=== PATIENT | male | born 2000 | race Caucasian/White ===

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

== ENCOUNTER 2024-03-20 19:32 | Emergency (ER) | payer BC, OTHER ==
[2024-03-20 19:49] VITALS: TEMP 98.9
--- NOTE | 2024-03-20 20:10 | ERPHSYRPT ---
- History of Present Illness Time Seen by Provider: 03/20/24 20:08 Source: patient Exam Limitations: no limitations Physician History: Patient is [id number] maleNo significant past medical history presents to our emergency department for evaluation of right upper quadrant pain. Patient states the pain has been intermittent for approximately 1 week. Patient reports she just cannot get comfortable. Pain tends to radiate to his back. Mother concerned for possible gallbladder disease. No trauma no fever patient is mildly nauseous. No chest pain or shortness of breath. Symptoms are constantWith intermittent bouts of worsening. Patient denies a history of the same. He voices no other complaints or concerns at this time. Portions of this note were created with voice recognition technology. There may be grammatical, spelling, punctuation or sound alike errors Timing/Duration: week(s) (1 week) Severity: moderate Modifying Factors: Improves With: nothing Associated Symptoms: denies symptoms Allergies/Adverse Reactions: No Known Drug Allergies Allergy (Verified 06/16/19 13:56) Hx Tetanus, Diphtheria Vaccination/Date Given: Yes Hx Influenza Vaccination/Date Given: No Hx Pneumococcal Vaccination/Date Given: No - Review of Systems Constitutional: No Symptoms, No Fever, No Chills Eyes: No Symptoms Ears, Nose, & Throat: No Symptoms Respiratory: No Symptoms, No Cough, No Dyspnea Cardiac: No Symptoms, No Chest Pain, No Edema, No Syncope Abdominal/Gastrointestinal: No Symptoms, No Abdominal Pain, No Nausea, No Vomiting, No Diarrhea Genitourinary Symptoms: No Symptoms, No Dysuria Musculoskeletal: No Symptoms, No Back Pain, No Neck Pain Skin: No Symptoms, No Rash Neurological: No Symptoms, No Dizziness, No Focal Weakness, No Sensory Changes Psychological: No Symptoms Endocrine: No Symptoms Hematologic/Lymphatic: No Symptoms Immunological/Allergic: No Symptoms All Other Systems: Reviewed and Negative - Past Medical History Pertinent Past Medical History: Yes Neurological History: No Pertinent History Cardiac History: No Pertinent History Respiratory History: No Pertinent History Endocrine Medical History: No Pertinent History Musculoskeletal History: No Pertinent History Psycho-Social History: Anxiety, Depression Other Medical History: seasonal allergies - Past Surgical History Past Surgical History: No - Social History Smoking Status: Never smoker Exposure to second hand smoke: No Drug Use: none Patient Lives Alone: No - Nursing Vital Signs Nursing Vital Signs: Initial Vital Signs Temperature 98.9 F 07/10/24 19:43 Pulse Rate 112 H 03/20/24 19:43 Respiratory Rate 18 03/20/24 19:43 Blood Pressure 147/95 03/20/24 19:43 O2 Sat by Pulse Oximetry 99 03/20/24 19:43 Pain Scale Pain Intensity 3 - Physical Exam General Appearance: no apparent distress, alert Eye Exam: PERRL/EOMI, eyes nml inspection Ears, Nose, Throat Exam: normal ENT inspection, TMs normal, pharynx normal, moist mucous membranes Neck Exam: normal inspection, non-tender, supple, full range of motion Respiratory Exam: normal breath sounds, lungs clear, airway intact, No respiratory distress Cardiovascular Exam: regular rate/rhythm, normal heart sounds, normal peripheral pulses Gastrointestinal/Abdomen Exam: soft, normal bowel sounds, No tenderness, No mass Back Exam: normal inspection, normal range of motion, No CVA tenderness, No vertebral tenderness Extremity Exam: normal inspection, normal range of motion, pelvis stable Neurologic Exam: alert, oriented x 3, cooperative, normal mood/affect, nml cerebellar function, nml station & gait, sensation nml, No motor deficits Skin Exam: normal color, warm, dry, No rash Lymphatic Exam: No adenopathy SpO2 Interpretation: normal SpO2: 99 O2 Delivery: Room Air - Course Nursing assessment & vital signs reviewed: Yes EKG Interpreted by Me: RATE ([id number]), Sinus Rhythm, NORMAL AXIS, NORMAL INTERVALS Ordered Tests: Active Orders 24 hr Category Date Time Status EKG-ER Only STAT Care 03/20/24 20:04 Active IV Insertion STAT Care 03/20/24 20:04 Active ABDOMEN AND PELVIS W/0 CONTRAS [CT] Stat Exams 03/20/24 21:37 Taken CBC W DIFF Stat Lab 03/20/24 20:10 Completed CMP Stat Lab 03/20/24 20:10 Completed D-DIMER QUANTITATIVE Stat Lab 03/20/24 20:10 Completed LIPASE Stat Lab 03/20/24 20:10 Completed TROPONIN Q4H Lab 03/20/24 20:10 Completed TROPONIN Q4H Lab 03/21/24 00:15 Ordered TROPONIN Q4H Lab 03/21/24 04:15 Ordered UA W/RFX UR CULTURE Stat Lab 03/20/24 20:00 Completed Urine Triage Profile Stat Lab 03/20/24 20:00 Completed Medication Summary Generic Name Dose Route Start Last Admin Trade Name Freq PRN Reason Stop Dose Admin Dextrose/Sodium Chloride 1,000 mls @ 200 mls/hr 03/20/24 21:30 03/20/24 21:40 Dextrose 5% -0.45 Nacl 1000 Ml IV 04/19/24 21:29 200 mls/hr .Q5H DAISY Administration Discontinued Medications Generic Name Dose Route Start Last Admin Trade Name Freq PRN Reason Stop Dose Admin Sodium Chloride 1,000 mls @ 999 mls/hr 03/20/24 20:04 03/20/24 20:21 Sodium Chloride 0.9% 1000 Ml IV 03/20/24 21:04 999 mls/hr .Q1H1M STA Administration Sodium Chloride Confirm 03/20/24 20:17 Sodium Chloride 0.9% 1000 Ml Administered 03/20/24 20:18 Dose 1,000 mls @ ud .ROUTE .STK-MED ONE Ketorolac Tromethamine 30 mg 03/20/24 20:04 03/20/24 20:26 Ketorolac Tromethamine 30 Mg/Ml Inj IV 03/20/24 20:05 30 mg STAT ONE Administration Ketorolac Tromethamine Confirm 03/20/24 20:17 Ketorolac Tromethamine 30 Mg/Ml Inj Administered 03/20/24 20:18 Dose 30 mg .ROUTE .STK-MED ONE Ondansetron HCl 4 mg 03/20/24 20:04 03/20/24 20:23 Ondansetron Hcl 4 Mg/2 Ml Vial IV 03/20/24 20:05 4 mg STAT ONE Administration Ondansetron HCl Confirm 03/20/24 20:17 Ondansetron Hcl 4 Mg/2 Ml Vial Administered 03/20/24 20:18 Dose 4 mg .ROUTE .STK-MED ONE Potassium Chloride 40 meq 03/20/24 21:28 03/20/24 21:40 Potassium Chloride Tab 10 Meq Tab PO 03/20/24 21:29 40 meq STAT ONE Administration Potassium Chloride Confirm 03/20/24 21:36 Potassium Chloride Tab 10 Meq Tab Administered 03/20/24 21:37 Dose 40 meq .ROUTE .STK-MED ONE Lab/Rad Data: Laboratory Result Diagrams 03/20/24 20:10 03/20/24 20:10 Laboratory Results 03/20/24 03/20/24 03/20/24 Range/Units 20:10 20:10 20:10 WBC (4.23-9.07) x10^3/uL RBC (4.63-6.08) x10^6/uL Hgb (13.7-17.5) g/dL Hct (40.1-51.0) % MCV (79.0-92.2) fL MCH (25.7-32.2) pg MCHC (32.3-36.5) g/dL RDW (11.6-14.4) % Plt Count (163-337) x10^3/uL MPV (9.4-12.4) fL Gran % (34.0-67.9) % Immature Gran % (Auto) (0.001-0.429) % Nucleat RBC Rel Count (0.00-0.2) % Eos # (Auto) (0.04-0.54) x10^3/uL Immature Gran # (Auto) (0.001-0.031) x10^3u/L Absolute Lymphs (auto) (1.32-3.57) x10^3/uL Absolute Monos (auto) (0.30-0.82) x10^3/uL Absolute Nucleated RBC (0.00-0.012) x10^3u/L Lymphocytes % (21.8-53.1) % Monocytes % (5.3-12.2) % Eosinophils % (0.8-7.0) % Basophils % (0.2-1.2) % Absolute Granulocytes (1.78-5.38) x10^3/uL Basophils # (0.01-0.08) x10^3/uL D-Dimer < 0.19 (0.0-0.50) mg/L Sodium 140 (135-145) mmol/L Potassium 3.3 L (3.5-5.1) mmol/L Chloride 104 (98-107) mmol/L Carbon Dioxide 19 L (22-30) mmol/L Anion Gap 20.1 H (5-15) MEQ/L BUN 17 (9-20) mg/dL Creatinine 0.86 (0.66-1.25) mg/dL Estimated GFR 124.8 ML/MIN Glucose 104 (74-106) mg/dL Calcium 10.3 H (8.4-10.2) mg/dL Total Bilirubin 0.70 (0.2-1.3) mg/dL AST 39 (17-59) U/L ALT 31 (0-50) U/L Alkaline Phosphatase 72 (38-126) U/L Troponin I < 0.012 (0.000-0.033) ng/mL Serum Total Protein 8.3 H (6.3-8.2) g/dL Albumin 5.1 H (3.5-5.0) g/dL Lipase 101 (23-300) U/L Urine Color (Yellow) Urine Appearance (Clear) Urine pH (4.6-8.0) Ur Specific Bricelyn (1.005-1.030) Urine Protein (Negative) Urine Glucose (UA) (Negative) mg/dL Urine Ketones (Negative) Urine Blood (Negative) Urine Nitrite (Negative) Urine Bilirubin (Negative) Urine Urobilinogen (0.2) mg/dL Ur Leukocyte Esterase (Negative) U Hyaline Cast (Auto) (0-2) /LPF Urine Microscopic RBC (0-5) /HPF Urine Microscopic WBC (0-5) /HPF Ur Epithelial Cells (None Seen) /HPF Urine Bacteria (None Seen) /HPF Urine Culture Reflexed (NO) Urine Opiates Level (NEGATIVE) Ur Methadone (NEGATIVE) Urine Barbiturates (NEGATIVE) Ur Phencyclidine (PCP) (NEGATIVE) Urine Amphetamine (NEGATIVE) U Benzodiazepine Level (NEGATIVE) Urine Cocaine (NEGATIVE) Urine Marijuana (THC) (NEGATIVE) 03/20/24 03/20/24 03/20/24 Range/Units 20:10 20:00 20:00 WBC 11.2 H (4.23-9.07) x10^3/uL RBC 5.12 (4.63-6.08) x10^6/uL Hgb 15.6 (13.7-17.5) g/dL Hct 45.5 (40.1-51.0) % MCV 88.9 (79.0-92.2) fL MCH 30.5 (25.7-32.2) pg MCHC 34.3 (32.3-36.5) g/dL RDW 11.9 (11.6-14.4) % Plt Count 284 (163-337) x10^3/uL MPV 10.7 (9.4-12.4) fL Gran % 69.4 H (34.0-67.9) % Immature Gran % (Auto) 0.3 (0.001-0.429) % Nucleat RBC Rel Count 0.0 (0.00-0.2) % Eos # (Auto) 0.21 (0.04-0.54) x10^3/uL Immature Gran # (Auto) 0.03 (0.001-0.031) x10^3u/L Absolute Lymphs (auto) 2.38 (1.32-3.57) x10^3/uL Absolute Monos (auto) 0.72 (0.30-0.82) x10^3/uL Absolute Nucleated RBC 0.00 (0.00-0.012) x10^3u/L Lymphocytes % 21.3 L (21.8-53.1) % Monocytes % 6.5 (5.3-12.2) % Eosinophils % 1.9 (0.8-7.0) % Basophils % 0.6 (0.2-1.2) % Absolute Granulocytes 7.74 H (1.78-5.38) x10^3/uL Basophils # 0.07 (0.01-0.08) x10^3/uL D-Dimer (0.0-0.50) mg/L Sodium (135-145) mmol/L Potassium (3.5-5.1) mmol/L Chloride (98-107) mmol/L Carbon Dioxide (22-30) mmol/L Anion Gap (5-15) MEQ/L BUN (9-20) mg/dL Creatinine (0.66-1.25) mg/dL Estimated GFR ML/MIN Glucose (74-106) mg/dL Calcium (8.4-10.2) mg/dL Total Bilirubin (0.2-1.3) mg/dL AST (17-59) U/L ALT (0-50) U/L Alkaline Phosphatase (38-126) U/L Troponin I (0.000-0.033) ng/mL Serum Total Protein (6.3-8.2) g/dL Albumin (3.5-5.0) g/dL Lipase (23-300) U/L Urine Color Yellow (Yellow) Urine Appearance Clear (Clear) Urine pH 6.0 (4.6-8.0) Ur Specific Bricelyn >=1.030 A (1.005-1.030) Urine Protein Negative (Negative) Urine Glucose (UA) Negative (Negative) mg/dL Urine Ketones 40 A (Negative) Urine Blood Negative (Negative) Urine Nitrite Negative (Negative) Urine Bilirubin Negative (Negative) Urine Urobilinogen 1.0 A (0.2) mg/dL Ur Leukocyte Esterase Negative (Negative) U Hyaline Cast (Auto) NONE SEEN (0-2) /LPF Urine Microscopic RBC 0-2 (0-5) /HPF Urine Microscopic WBC 0-2 (0-5) /HPF Ur Epithelial Cells None Seen (None Seen) /HPF Urine Bacteria None Seen (None Seen) /HPF Urine Culture Reflexed NO (NO) Urine Opiates Level NEGATIVE (NEGATIVE) Ur Methadone NEGATIVE (NEGATIVE) Urine Barbiturates NEGATIVE (NEGATIVE) Ur Phencyclidine (PCP) NEGATIVE (NEGATIVE) Urine Amphetamine NEGATIVE (NEGATIVE) U Benzodiazepine Level NEGATIVE (NEGATIVE) Urine Cocaine NEGATIVE (NEGATIVE) Urine Marijuana (THC) POSITIVE A (NEGATIVE) - Progress Progress: improved Progress Note: 23-year-old male presents to our ED for evaluation of some right upper quadrant discomfort radiating to his back. We are concerned for possible gallbladder disease. Liver function test appeared normal. CT abdomen pelvis negative for acute intra-abdominal pathology. Gallbladder appears normal per radiologist. Liver enzymes are normal as well. However potassium was low and ketone levels are little high. This is likely because patient has not been eating very much. Based on specific gravity patient was dehydrated. Patient received IV fluids and D5 half-normal as well. He feels better. Mother advised to follow-up with primary care doctor and consideration of possible right upper quadrant ultrasound and possible HIDA scan given patient symptomology. Plan of care discussed with patient and mother who is at the bedside. They voiced no other complaints or concerns at this time. Will discharge home They will follow-up as discussed Portions of this note were created with voice recognition technology. There may be grammatical, spelling, punctuation or sound alike errors Complexity problem addressed is moderate acute complicated. No critical care time. Complex of data reviewed and analyzed is moderate. Test ordered test reviewed results analyzed and correlated clinically with history and physical exam. Risk complication and or risk of morbidity/mortality patient management is moderate. A prescription for Zofran forwarded to patient's pharmacy. Vital stable. Time spent to discharge patient approximately 20 minutes. Plan of care established for shared decision making. No social determinants of health present impede follow-up. Patient disclaimer 03/20/24 22:37 03/20/24 22:39 Counseled pt/family regarding: lab results, diagnosis, need for follow-up, rad results - Departure Departure Disposition: Home Clinical Impression: Dehydration, Ketoacidosis, Hypokalemia, Right upper quadrant pain Condition: Stable Critical Care Time: No Referrals: SONU DELGADO MD [Primary Care Provider] - Follow up/PCP as directed Additional Instructions: Discharge/Care Plan FARIDEH NEFF was seen on 03/20/24 in the Emergency Room. The patient was counseled regarding Diagnosis,Lab results, Imaging studies, need for follow up and when to return to the Emergency Room. Prescriptions given: Discharge Note I have spoken with the patient and/or caregivers. I have explained the patient's condition, diagnosis and treatment plan based on the information available to me at this time. I have answered the patient's and/or caregiver's questions and addressed any concerns. The patient and/or caregivers have as good understanding of the patient's diagnosis, condition and treatment plan as can be expected at this point. The vital signs have been stable. The patient's condition is stable and appropriate for discharge from the emergency department. The patient will pursue further outpatient evaluation with the primary care physician or other designated or consulting physician as outlined in the discharge instructions. The patient and/or caregivers are agreeable to this plan of care and follow-up instructions have been explained in detail. The patient and/or caregivers have received these instruction. The patient/and or caregivers are aware that any significant change in condition or worsening of symptoms should prompt an immediate return to this or the closest emergency department or call 911. Prescriptions: Ondansetron ODT 4 MG [Zofran Odt 4 mg] 4 mg PO Q6H PRN PRN #10 tablet PRN Reason: Vomiting
[2024-03-20 20:17] LABS: Absolute Neutrophil Ct (ANC) 7.74 x10^3/uL (1.78-5.38); BASOPHIL % 0.6 % (0.2-1.2); Basophil (Absolute #) 0.07 x10^3/uL (0.01-0.08); Eosinophil % 1.9 % (0.8-7.0); Eosinophil (Absolute #) 0.21 x10^3/uL (0.04-0.54); Hematocrit 45.5 % (40.1-51.0); Hemoglobin 15.6 g/dL (13.7-17.5); IMMATURE GRAN # 0.03 x10^3u/L (0.001-0.031); IMMATURE GRAN % 0.3 % (0.001-0.429); Lymphocyte (Absolute #) 2.38 x10^3/uL (1.32-3.57); Lymphocytes % 21.3 % (21.8-53.1); Mean Cell Volume 88.9 fL (79.0-92.2); Mean Corpuscular Hemoglobin 30.5 pg (25.7-32.2); Mean Corpuscular Hgb Concent. 34.3 g/dL (32.3-36.5); Mean Platelet Volume 10.7 fL (9.4-12.4); Monocyte (Absolute #) 0.72 x10^3/uL (0.30-0.82); Monocytes % 6.5 % (5.3-12.2); Neutrophil % 69.4 % (34.0-67.9); Platelet Count 284 x10^3/uL (163-337); Red Blood Count 5.12 x10^6/uL (4.63-6.08); Red Cell Distribution Width 11.9 % (11.6-14.4); White Blood Count 11.2 x10^3/uL (4.23-9.07)
[2024-03-20] MEDS ORDERED: TORAdol 30 mg Injection ONE (20:17)
[2024-03-20] MEDS ORDERED: Sodium Chloride 0.9% 1000 ML 1,000 ML ONE (20:17)
[2024-03-20] MEDS ORDERED: Zofran 4 MG/2 ML VIAL ONE (20:17)
[2024-03-20] MEDS: Sodium Chloride 0.9% 1000 ML 1,000 ML IV STA (20:21)
[2024-03-20] MEDS: Zofran 4 MG/2 ML VIAL IV ONE (20:23)
[2024-03-20 20:25] LABS: Appearance Clear (Clear); Bacteria None Seen /HPF (None Seen); Bilirubin Negative (Negative); Blood Negative (Negative); Epithelial Cells None Seen /HPF (None Seen); Glucose, Urine Negative (Negative); Hyaline Casts NONE SEEN /LPF (0-2); Ketones 40 (Negative); Leukocyte Esterase Negative (Negative); Nitrite Negative (Negative); Protein,Urine Dip Negative (Negative); RBC 0-2 /HPF (0-5); Specific Gravity >=1.030 (1.005-1.030); WBC 0-2 /HPF (0-5)
[2024-03-20] MEDS: TORAdol 30 mg Injection IV ONE (20:26)
[2024-03-20 20:27] LABS: ADD URINE CULTURE? NO (NO)
[2024-03-20 20:30] LABS: ALBUMIN 5.1 g/dL (3.5-5.0); ANION GAP 20.1 MEQ/L (5-15); BILIRUBIN,TOTAL 0.7 mg/dL (0.2-1.3); Calcium 10.3 mg/dL (8.4-10.2); Creatinine 1 0.86 mg/dL (0.66-1.25); EST GLOMERULAR FILTRATION RATE 124.8 ML/MIN; Potassium 3.3 mmol/L (3.5-5.1); Total Protein 8.3 g/dL (6.3-8.2)
[2024-03-20 20:35] LABS: Amphetamine,Urine NEGATIVE (NEGATIVE); Barbiturate,Urine NEGATIVE (NEGATIVE); Benzodiazepine,Urine NEGATIVE (NEGATIVE); Cocaine,Urine NEGATIVE (NEGATIVE); Methadone,Urine NEGATIVE (NEGATIVE); Opiate,Urine NEGATIVE (NEGATIVE); PCP,Urine NEGATIVE (NEGATIVE); THC,Urine POSITIVE (NEGATIVE)
[2024-03-20] MEDS ORDERED: Klor Con ONE (21:36)
[2024-03-20] MEDS ORDERED: Dextrose 5% -0.45 NaCl 1000 ML 1,000 ML IV ONE (21:37)
[2024-03-20] MEDS: Klor Con PO ONE (21:40)
[2024-03-20] MEDS: Dextrose 5% -0.45 NaCl 1000 ML 1,000 ML IV SCH (21:40)
[2024-03-20 22:09] VITALS: BP 130/77; PULSE 78; RESP 19
[2024-03-20 22:41] VITALS: O2SAT 99
--- NOTE | 2024-03-21 08:46 | XRAY ---
Indication: Right upper quadrant pain. Multiple contiguous axial images obtained through the abdomen and pelvis without contrast. Comparison: None Lung bases clear. Heart not enlarged. Stomach demonstrates 3 ingested medication/pills. Noncontrasted stomach and bowel loops appear nonobstructed with normal appendix. No free fluid/air. Remaining liver, gallbladder, pancreas, spleen, adrenal glands, kidneys, ureters, bladder, and aorta are unremarkable for noncontrast exam. Osseous structures intact. No ventral or inguinal hernias. Impression: CT abdomen/pelvis without contrast exam is negative.
== END 2024-03-20 22:43 | disposition home or self-care (01) ==
LOC: ED 19:32
DX: E86.0 Dehydration (principal); E87.29 Other acidosis; E87.6 Hypokalemia; R10.11 Right upper quadrant pain
CPT/HCPCS: 36000; 36415; 74176; 80053; 80307; 81001; 83690; 84484; 85025; 85379; 93005; 96374; 96375; 99284; J1885; J2405; A9270-GY